=== PATIENT | female | born 1985 | race Caucasian/White ===

== ENCOUNTER 2017-02-22 15:50 | Observation (INO) | payer MEDICAID, SELFPAY ==
--- NOTE | 2017-02-22 15:58 | HP.PCM_ITS ---
Problem List (1) Heroin abuse Status: Chronic (2) Tobacco use Status: Chronic (3) Crack cocaine use Status: Chronic (4) Hepatitis C Status: Chronic Qualifiers: Viral hepatitis chronicity: unspecified History of Present Illness Date of Admission: 02/22/17 Chief Complaint: Acute Opiate Withdrawal The patient is a 31 y/o F w/ PMHx: Heroine IVDA (1/2-1 gm daily), Occasional Crack cocaine usage, Tobacco usage, History Hepatitis C positive status who presents to the [facility] office at [facility] on 02/22/17 w/ noted opiate withdrawal onset starting early this AM following last dose the day prior at approximately 8 pm and last noted crack cocaine usage 1 day prior also with abdominal pain/ cramping, generalized body aches and pains, rhinorrhea, piloerection, fatigue, restless leg, sweating, yawning. Patient interested in attaining clean status. She has never underwent acute withdrawal program. She notes usage started ~ 9 years prior following of her son with noted to have been on narcotics and the father of her son was an IVDA Heroin and she notes encouraged her usage. She lives with her mother who takes care of her son. She does not work she notes. She notes being an artists. 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 Past Medical History Past Medical History (Chronic Problems): Chronic Problems Crack cocaine use (Chronic) Hepatitis C (Chronic) Heroin abuse (Chronic) Tobacco use (Chronic) Cefazolin Hives Home Medications: Ambulatory Orders Medication Instructions Recorded No Known/Unobtainable [No Known 02/22/17 Home Medications] Surgical History: - - Tonsillectomy, ?1. 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 Smoking Status: Current every day smoker - 1 pack per day tobacco user. Tobacco Use: Cigarettes Alcohol: None Drugs: Cocaine, Heroin - *Family History Maternal History Items: No pertinent history Paternal History Items: Diabetes Review of Systems Constitutional: Reports: Anorexia, Chills, Malaise, Weakness, Fatigue. Denies: Fever, Weight Change HEENT: Denies: Head Aches, Sinus Congestion, Sinus Drainage Cardiovascular: Denies: Chest Pain, Palpitations Respiratory: Denies: Cough, Shortness of breath at rest, Sputum production Gastrointestinal: Reports: Abdominal Pain, Diarrhea, Nausea. Denies: Vomiting Genitourinary: Denies: Dysuria Musculoskeletal: Reports: Back Pain, Joint stiffness, Joint swelling, Joint Tenderness, Muscle pain, Shoulder Pain. Denies: Joint Pain Skin: Reports: Skin Changes, Wounds. Denies: Rash Neurological: Denies: Numbness, Tingling, Focal weakness Psychiatric: Denies: Anxiety, Depression, Homicidal Ideations, Suicidal Ideations Hematologic/ Lymphatic: Denies: Easy Bruising, Easy Bleeding VTE Information - Inpt Only VTE Present on Admission: No VTE Mechan Device Prophylaxis: SCD's VTE Pharm Prophylaxis ordered?: No Reason prophylaxis not ordered:: Treatment Not Indicated Subjective: Seated upright in the bed, mildly agitated, acute withdrawal evident. Objective: Physical Examination: General: awake, alert, oriented x 3 and cooperative, seated upright in bed, mildly agitated, acute withdrawal evident. Skin: normal color, turgor, no icterus, cyanosis aside occasional scar, primarily on her face and LE, most recent infection LUE antecubital region with no evidence of acute infection. HEENT: AT/NC, EOMI, PERRLA, mildly dry MM, no carotid bruits or JVD noted. Lungs: CTA bilaterally, moderate effort, moderate decrease BL bases, no rales, ronchi or wheezing. Heart: Regular rate and rhythm; no gallop, rub audible. Abdomen: soft, mildly generalized discomfort w/ palpation, ND, mildly hyperactive BS, + HM. Extremities: no cyanosis, clubbing, or edema, see skin. Neurological: patient awake, alert, oriented x 3; cognitive function intact; pupils equally reactive to light and accomodation; cranial nerves II-XII grossly normal, moving all 4 extremities, no focal deficits, strength moderately globally decreased secondary to acute presentation. Psychiatric: affect appears agitated, strained, no acute evidence of depressive feelings. Assessment/Plan The patient is a 31 y/o F w/ PMHx: Heroine IVDA (1/2-1 gm daily), Occasional Crack cocaine usage, Tobacco usage, History Hepatitis C positive status who presents to the [facility] office at [facility] on 02/22/17 w/ noted opiate withdrawal onset starting early this AM following last dose the day prior at approximately 8 pm and last noted crack cocaine usage 1 day prior also. (1) Acute Opiate Withdrawal: Will admit to [facility], obtain routine labs including CBC , CMP, urine for drug screen, urinalysis, serum lipase, routine EKG and will initiate and continue on [facility] service protocol with tapering course of Subutex, as needed Seroquel, Librium, Sinemet, Catapres, Bentyl, Vistaril, IV fluids, IV antiemetics, Tylenol as needed for pain. Once patient clinically improved and completion of taper nearing will plan [facility] assistance for transition to next level of rehabilitation care. (2) Polysubstance Abuse, IVDA Hx, History of Hepatitis C, Chronic: Patient currently not candidate for hep C treatment currently as needs to be clean, sober x 6 months, documented attendance NA or AA meetings, counseling and ongoing negative drug screens. Once appropriate GI, ID to initiate. HIV, hepatitis panel to assess for co-infection pending. Denied prostitution as method to obtain her drugs. Encouraged PCP establishment and follow-up. (3) Tobacco Abuse: Encouraged cessation, inpatient consultation per RT, NR if desired. (4) DVT prophylaxis: CHELITA, low risk, ambulation.
[2017-02-22 16:16] VITALS: BMI 24.6
[2017-02-22] MEDS: Dicyclomine 10 MG Capsule 20 MG PO (16:47)
[2017-02-22] MEDS: Buprenorphine HCl 2 MG TAB.SUBL SL (16:47)
[2017-02-22] MEDS: cloNIDine HCl 0.1 MG Tablet 0.2 MG PO (16:47)
[2017-02-22] MEDS: Methocarbamol 750 MG Tablet PO (16:48)
[2017-02-22] MEDS: Carbidopa/Levodopa 25/100 Tablet PO (16:48)
[2017-02-22 17:05] VITALS: BP 116/69; PULSE 45; RESP 16; TEMP 36.8
[2017-02-22] MEDS: 0.9% Normal Saline 1,000 ML 125 ML IV (17:25)
[2017-02-22 17:29] LABS: Absolute Lymphocyte Count 2.32 X10^3/ul (0.83-4.51); Absolute Neutrophil Count 5.8 X10^3/uL (2.0-7.7); Basophil# 0.06 X10^3/uL; Basophil% 0.7 % (0-1); Eosinophil# 0.09 X10^3/uL; Hematocrit 41.5 % (37-47); Hemoglobin 13.8 g/dl (12.0-15.0); Lymphocyte # 2.32 X10^3/ul (4.0); Lymphocyte % 26.5 % (19-41); Mean Corp Hgb Conc 33.3 g/gl (32-36); Mean Corpuscular Hgb 30.9 pg (27.0-32.0); Mean Platelet Vol. 10.4 fl (6.2-12.0); Monocyte# 0.44 X10^3/uL; Neutrophil # 5.84 X10^3/uL (2.7-7.7); Neutrophil % 66.6 % (47-70); Platelet Count 348 K/mm3 (150-450); RBC Distribution Width CV 13.1 % (11.6-14.6); RBC Distribution Width SD 44.9 fl (35.1-43.9); Red Blood Count 4.46 M/mm3 (4.2-5.4); White Blood Count 8.8 K/mm3 (4.4-11.0)
[2017-02-22 17:39] LABS: POSITIVE COUNT NO; POSITIVE DIFFERENTIAL NO; POSITIVE MORPHOLOGY NO
[2017-02-22 18:13] LABS: Alcohol, Blood (Medical)-Serum < 3.0 mg/dL
[2017-02-22 18:18] LABS: ALB/GLOB Ratio 0.9 RATIO (0.9-2.4); AST(SGOT) 50 U/L (15-37); Alanine Aminotransfer ALT/SGPT 96 U/L (12-78); Albumin, Serum 3.6 g/dL (3.4-5.0); Alkaline Phosphatase 91 U/L (45-117); Anion Gap 6 (5-15); BUN 8 mg/dL (7-18); BUN/Creat Ratio 10.3 RATIO (10-20); Calcium,Total 9.3 mg/dL (8.5-10.1); Chloride 104 mmol/L (98-107); Creatinine, Serum 0.78 mg/dL (0.55-1.02); EST Glomerular Filtration Rate 92 mL/min (>60); Est Glom Filt Rate - Afr Amer 112 mL/min (>60); Globulin 3.8 g/dL (2.3-3.5); Glucose 95 mg/dL (70-110); Lipase 95 U/L (73-393); Potassium 3.8 mmol/L (3.5-5.1); Protein, Total 7.4 g/dL (6.4-8.2); Sodium Level 138 mmol/L (136-145)
[2017-02-22] MEDS: chlordiazePOXIDE 25 MG Capsule PO ×2 (18:20→22:29)
[2017-02-22 18:23] LABS: Pregnancy, Serum, hCG Quali. NEGATIVE Negative (0-9 Nonpreg)
[2017-02-22 22:00] VITALS: BP 116/65; PULSE 76; RESP 16; TEMP 37
[2017-02-22] MEDS: traZODone 50 MG Tablet PO (22:29)
[2017-02-22] MEDS: QUEtiapine 25 MG Tablet PO (22:29)
[2017-02-23] VITALS (7 sets, daily range): BP systolic 108–120; BP diastolic 51–77; PULSE 44–62; RESP 12–18; TEMP 36.2–37; O2SAT 100
[2017-02-23] MEDS: Buprenorphine HCl 2 MG TAB.SUBL SL ×3 (00:23→16:12)
[2017-02-23] MEDS: chlordiazePOXIDE 25 MG Capsule PO ×4 (02:23→14:56)
[2017-02-23] MEDS: Methocarbamol 750 MG Tablet PO ×3 (06:23→22:17)
[2017-02-23] MEDS: Multivitamins,Ther W-Minerals Tablet 1 TABLET PO (07:39)
[2017-02-23] MEDS: Thiamine Hydrochloride 100 MG Tablet PO (07:39)
[2017-02-23] MEDS: Folic Acid 1 MG Tablet PO (07:39)
[2017-02-23] MEDS: Ibuprofen 400 MG Tablet 800 MG PO ×2 (07:42→18:13)
[2017-02-23] MEDS: Carbidopa/Levodopa 25/100 Tablet PO ×2 (07:43→18:17)
[2017-02-23] MEDS: Acetaminophen 325 MG Tablet 650 MG PO (10:40)
[2017-02-23] MEDS: QUEtiapine 25 MG Tablet PO ×2 (10:40→18:13)
[2017-02-23] MEDS: Loperamide 2 MG Capsule PO (10:40)
--- NOTE | 2017-02-23 11:55 | PCM.PROGNOTE ---
Subjective: 31-year-old female with history of IV heroin addiction and cocaine use presented to the [facility] office on 02/22 requesting inpatient admission for medical stabilization for opioid withdrawal. She has been to [facility] in the past for inpatient rehabilitation and was clean for 8 months. She started using heroin again when her ex-boyfriend back into her life. Plan is to go to [facility] discharged from [facility]. She is somewhat restless and is complaining of abdominal cramping and restless legs. Was able to sleep last night. She denies any nausea or vomiting. - Physical Exam General: Alert, Oriented x3, Cooperative, - - She is somewhat restless. No diaphoresis it makes good eye contact HEENT: Atraumatic Oral: Moist Mucosa Neck: Supple Lungs: Clear to auscultation Cardiovascular: Regular rate, Regular Rhythm, Normal S1, Normal S2, No murmurs, No Gallop Abdomen: Bowel Sounds Present, Soft, Non Tender, Non-Distended Extremities: No edema Vital Signs Temp Pulse Resp BP Pulse Ox 97.8 F 50 12 114/67 02/23/17 10:35 02/23/17 10:35 02/23/17 10:35 02/23/17 10:35 Weight: 143 lb 8.335 oz Body Mass Index (BMI) 24.6 Intake and Output for Last 24 Hours 02/21/17 02/22/17 02/23/17 23:59 23:59 23:59 Intake Total 990 Balance 990 Laboratory Tests Past 24 Hrs 02/22/17 02/22/17 02/22/17 17:08 17:08 17:08 WBC 8.8 RBC 4.46 Hgb 13.8 Hct 41.5 MCV 93.0 MCH 30.9 MCHC 33.3 RDW 13.1 RDW Differential 44.9 H Plt Count 348 MPV 10.4 Immature Gran % (Auto) 0.200 Neut % (Auto) 66.6 Lymph % (Auto) 26.5 Platte % (Auto) 5.0 Eos % (Auto) 1.0 Baso % (Auto) 0.7 Absolute Neuts (auto) 5.8 Absolute Lymphs (auto) 2.32 Total Counted Not Reportable Sodium 138 Potassium 3.8 Chloride 104 Carbon Dioxide 28.0 Anion Gap 6 BUN 8 Creatinine 0.78 Estim Creat Clear Calc 91.90 Est GFR (MDRD) Af Amer 112 Est GFR (MDRD) Non-Af 92 BUN/Creatinine Ratio 10.3 Glucose 95 Calcium 9.3 Total Bilirubin 0.20 AST 50 H ALT 96 H Alkaline Phosphatase 91 Total Protein 7.4 Albumin 3.6 Globulin 3.8 H Albumin/Globulin Ratio 0.9 Lipase 95 Serum , Qual Ethyl Alcohol Hepatitis A IgM Ab Pending Hepatitis A Ab Total Pending Hep Bs Antigen Pending Hep B Core Total Ab Pending Hep B Core IgM Ab Pending Hepatitis C Comment Pending HIV 1&2 Ag/Ab, 4th Gen Pending 02/22/17 02/22/17 17:08 17:08 WBC RBC Hgb Hct MCV MCH MCHC RDW RDW Differential Plt Count MPV Immature Gran % (Auto) Neut % (Auto) Lymph % (Auto) Platte % (Auto) Eos % (Auto) Baso % (Auto) Absolute Neuts (auto) Absolute Lymphs (auto) Total Counted Sodium Potassium Chloride Carbon Dioxide Anion Gap BUN Creatinine Estim Creat Clear Calc Est GFR (MDRD) Af Amer Est GFR (MDRD) Non-Af BUN/Creatinine Ratio Glucose Calcium Total Bilirubin AST ALT Alkaline Phosphatase Total Protein Albumin Globulin Albumin/Globulin Ratio Lipase Serum , Qual NEGATIVE Ethyl Alcohol < 3.0 Hepatitis A IgM Ab Hepatitis A Ab Total Hep Bs Antigen Hep B Core Total Ab Hep B Core IgM Ab Hepatitis C Comment HIV 1&2 Ag/Ab, 4th Gen Assessment/Plan Impressions 1. Acute opiate withdrawal and admitted for medical stabilization for withdrawal from opiates 2. Heroin addiction 3. Admitted use of cocaine 4. Hepatitis C with mildly increased transaminases 5. Nicotine addiction Continue [facility] protocol for opiate withdrawal
[2017-02-23] MEDS: traZODone 50 MG Tablet PO (22:17)
[2017-02-24] MEDS: Buprenorphine HCl 2 MG TAB.SUBL SL ×3 (00:03→20:27)
[2017-02-24 04:15] VITALS: BP 124/59; PULSE 58; RESP 16; TEMP 36.8; O2SAT 99
[2017-02-24 05:33] VITALS: BP 124/59; PULSE 58; RESP 16; TEMP 36.8
[2017-02-24 06:08] LABS: HEPATITIS B SURFACE AG Negative (Negative); Hepatitis A AB, Total Negative (Negative); Hepatitis A IgM Antibody Negative (Negative); Hepatitis B Core AB IgM Negative (Negative); Hepatitis B Core Ab Total Negative (Negative); Hepatitis C Ab >11.0 s/co ratio (0.0-0.9)
[2017-02-24 08:15] VITALS: BP 116/62; PULSE 55; RESP 16; TEMP 36.5
[2017-02-24] MEDS: Methocarbamol 750 MG Tablet PO ×2 (08:22→18:03)
[2017-02-24] MEDS: Multivitamins,Ther W-Minerals Tablet 1 TABLET PO (08:22)
[2017-02-24] MEDS: Folic Acid 1 MG Tablet PO (08:22)
[2017-02-24] MEDS: Thiamine Hydrochloride 100 MG Tablet PO (08:22)
[2017-02-24] MEDS: Carbidopa/Levodopa 25/100 Tablet PO ×2 (08:22→18:03)
[2017-02-24 09:08] LABS: HIV 1/0/2 SCREEN 4TH GEN Non Reactive (Non Reactive); Hep B Surface Antibodies Reactive (.)
[2017-02-24 15:10] VITALS: BP 115/77; PULSE 64; RESP 16; TEMP 36.8
[2017-02-24] MEDS: Ibuprofen 400 MG Tablet 800 MG PO (15:11)
[2017-02-24] MEDS: Loperamide 2 MG Capsule PO (15:11)
[2017-02-24] MEDS: cloNIDine HCl 0.1 MG Tablet PO (15:12)
--- NOTE | 2017-02-24 15:42 | PN_ITS ---
Subjective: Less restless today. Looks better. She is complaining of diarrhea today. Denies abdominal pain and also denies nausea or vomiting. She has had some diaphoresis. She is also complaining of some nasal congestion. Vital signs are stable. - Physical Exam General: Alert, Oriented x3, Cooperative, No apparent distress HEENT: Atraumatic, PERRLA, EOMI Oral: Moist Mucosa Lungs: Clear to auscultation Cardiovascular: Regular rate, Regular Rhythm, Normal S1, Normal S2, No murmurs Abdomen: Bowel Sounds Present - Increasing bowel sounds today, Soft, Non Tender , Non-Distended Extremities: No edema Skin: No rashes Vital Signs Temp Pulse Resp BP Pulse Ox 98.3 F 64 16 115/77 99 02/24/17 15:10 02/24/17 15:10 02/24/17 15:10 02/24/17 15:10 02/24/17 04:15 Oxygen Delivery Method Room Air Weight: 143 lb 8.335 oz Body Mass Index (BMI) 24.6 Intake and Output for Last 24 Hours 02/22/17 02/23/17 02/24/17 23:59 23:59 23:59 Intake Total 1690 1350 Balance 1690 1350 Laboratory Tests Past 24 Hrs 02/22/17 17:08 Hepatitis A IgM Ab Negative Hepatitis A Ab Total Negative Hep Bs Antigen Negative Hep B Core Total Ab Negative Hep B Core IgM Ab Negative Hepatitis C Ab Confirm >11.0 H Hepatitis C Comment Not Reportable HIV 1&2 Ag/Ab, 4th Gen Non Reactive Assessment/Plan Impressions 1. Acute opiate withdrawal and admitted for medical stabilization for withdrawal from opiates 2. Heroin addiction 3. Admitted use of cocaine 4. Hepatitis C with mildly increased transaminases 5. Nicotine addiction Continue [facility] protocol for opiate withdrawal
[2017-02-24 18:00] VITALS: BP 105/60; PULSE 59; RESP 14; TEMP 36.6
[2017-02-24] MEDS: QUEtiapine 25 MG Tablet PO (18:03)
[2017-02-24 20:19] VITALS: BP 111/58; PULSE 65; RESP 16; TEMP 36.9
[2017-02-24] MEDS: traZODone 50 MG Tablet PO (20:27)
[2017-02-25 00:32] VITALS: BP 104/65; PULSE 97; RESP 16; TEMP 36.6
[2017-02-25] MEDS: QUEtiapine 25 MG Tablet PO (00:33)
[2017-02-25] MEDS: Methocarbamol 750 MG Tablet PO (00:33)
[2017-02-25] MEDS: Ibuprofen 400 MG Tablet 800 MG PO (00:33)
[2017-02-25 08:06] VITALS: BP 108/54; PULSE 54; RESP 16; TEMP 36.8
[2017-02-25] MEDS: Buprenorphine HCl 2 MG TAB.SUBL SL (08:12)
[2017-02-25] MEDS: Folic Acid 1 MG Tablet PO (08:12)
[2017-02-25] MEDS: Thiamine Hydrochloride 100 MG Tablet PO (08:12)
[2017-02-25] MEDS: Multivitamins,Ther W-Minerals Tablet 1 TABLET PO (08:12)
--- NOTE | 2017-02-25 12:01 | PCM.DC ---
- Discharge Diagnoses Current Active Problems: Current Active and Chronic Problems Crack cocaine use (Chronic) Hepatitis C (Chronic) Heroin abuse (Chronic) Tobacco use (Chronic) You will use the following diet at home:: No restrictions Your food should be the consistency of: Regular Your liquids should be the consistency of: Regular/Thin Discharge Activity: Return to Normal Activity Call your doctor if you observe: Fever of 101 or Higher Allergies/Adverse Reactions: Allergies cefazolin Allergy (Verified 02/22/17 16:17) Hives Medications to take at Discharge Ibuprofen [Motrin] 800 mg PO Q8H PRN PRN tablet 02/25/17 Loperamide [Imodium] 2 - 4 mg PO UD PRN capsule 02/25/17 Multivitamins,Ther W-Minerals [Multivitamin With Minerals] 1 tablet PO DAILYCM tablet 02/25/17 Primary Care Physician: Alka Huynh,Out of [Primary Care Provider] - Proposed Discharge Date: 02/25/17
--- NOTE | 2017-02-27 21:29 | PCM.DC.SUM ---
Discharge Date and Diagnosis Date of Admission: 02/22/17 Date of Discharge: 02/25/17 - Primary Discharge Diagnosis Acute opiate withdrawal - Secondary Discharge Diagnosis Chronic Problems Crack cocaine use (Chronic) Hepatitis C (Chronic) Heroin abuse (Chronic) Tobacco use (Chronic) Hospital Course and Treatment Imaging Results: Laboratory Last Values WBC 8.8 K/mm3 (4.4-11.0) 02/22/17 17:08 RBC 4.46 M/mm3 (4.2-5.4) 02/22/17 17:08 Hgb 13.8 g/dl (12.0-15.0) 02/22/17 17:08 Hct 41.5 % (37-47) 02/22/17 17:08 MCV 93.0 fL (81-99) 02/22/17 17:08 MCH 30.9 pg (27.0-32.0) 02/22/17 17:08 MCHC 33.3 g/gl (32-36) 02/22/17 17:08 RDW 13.1 % (11.6-14.6) 02/22/17 17:08 RDW Differential 44.9 fl (35.1-43.9) H 02/22/17 17:08 Plt Count 348 K/mm3 (150-450) 02/22/17 17:08 MPV 10.4 fl (6.2-12.0) 02/22/17 17:08 Immature Gran % (Auto) 0.200 % (0.0-0.9) 02/22/17 17:08 Neut % (Auto) 66.6 % (47-70) 02/22/17 17:08 Lymph % (Auto) 26.5 % (19-41) 02/22/17 17:08 Rankin % (Auto) 5.0 % (0-10) 02/22/17 17:08 Eos % (Auto) 1.0 % (0-5) 02/22/17 17:08 Baso % (Auto) 0.7 % (0-1) 02/22/17 17:08 Absolute Neuts (auto) 5.8 X10^3/uL (2.0-7.7) 02/22/17 17:08 Absolute Lymphs (auto) 2.32 X10^3/ul (0.83-4.51) 02/22/17 17:08 Total Counted Not Reportable 02/22/17 17:08 Sodium 138 mmol/L (136-145) 02/22/17 17:08 Potassium 3.8 mmol/L (3.5-5.1) 02/22/17 17:08 Chloride 104 mmol/L (98-107) 02/22/17 17:08 Carbon Dioxide 28.0 mmol/L (21.0-32.0) 02/22/17 17:08 Anion Gap 6 (5-15) 02/22/17 17:08 BUN 8 mg/dL (7-18) 02/22/17 17:08 Creatinine 0.78 mg/dL (0.55-1.02) 02/22/17 17:08 Estim Creat Clear Calc 91.90 ml/min 02/22/17 17:08 Est GFR (MDRD) Af Amer 112 mL/min (>60) 02/22/17 17:08 Est GFR (MDRD) Non-Af 92 mL/min (>60) 02/22/17 17:08 BUN/Creatinine Ratio 10.3 RATIO (10-20) 02/22/17 17:08 Glucose 95 mg/dL (70-110) 02/22/17 17:08 Calcium 9.3 mg/dL (8.5-10.1) 02/22/17 17:08 Total Bilirubin 0.20 mg/dL (0.20-1.00) 02/22/17 17:08 AST 50 U/L (15-37) H 02/22/17 17:08 ALT 96 U/L (12-78) H 02/22/17 17:08 Alkaline Phosphatase 91 U/L (45-117) 02/22/17 17:08 Total Protein 7.4 g/dL (6.4-8.2) 02/22/17 17:08 Albumin 3.6 g/dL (3.4-5.0) 02/22/17 17:08 Globulin 3.8 g/dL (2.3-3.5) H 02/22/17 17:08 Albumin/Globulin Ratio 0.9 RATIO (0.9-2.4) 02/22/17 17:08 Lipase 95 U/L (73-393) 02/22/17 17:08 Serum , Qual NEGATIVE Negative (0-9 Nonpreg) 02/22/17 17:08 Ethyl Alcohol < 3.0 mg/dL 02/22/17 17:08 Hepatitis A IgM Ab Negative (Negative) 02/22/17 17:08 Hepatitis A Ab Total Negative (Negative) 02/22/17 17:08 Hep Bs Antigen Negative (Negative) 02/22/17 17:08 Hep B Core Total Ab Negative (Negative) 02/22/17 17:08 Hep B Core IgM Ab Negative (Negative) 02/22/17 17:08 Hepatitis C Ab Confirm >11.0 s/co ratio (0.0-0.9) H 02/22/17 17:08 Hepatitis C Comment Not Reportable 02/22/17 17:08 HIV 1&2 Ag/Ab, 4th Gen Non Reactive (Non Reactive) 02/22/17 17:08 None Operations: None Procedures: None Summary of Care Provided: 31-year-old female with history of IV heroin addiction and cocaine use presented to the [facility] office on 02/22 requesting inpatient admission for medical stabilization for opioid withdrawal. She had been to in-patient drug rehab in the past at [facility] and her plan was to return to [facility] upon discharge from [facility]. She was admitted to the hospital and the [facility] protocol for opioid withdrawal was initiated. Labs showed a normal CBC. The CMP showed a mild increase in AST to 50 and the ALT was 96. Bilirubin and alkaline phosphatase were within normal limits and she is known to have hepatitis C. Serum test was negative. HIV was negative. Her admission was unremarkable and on the date of discharge she was alert and oriented ?3. Her mother arrived at the hospital and was going to drive her to [facility] for intake. Discharge Activity: Return to Normal Activity Call your doctor if you observe: Fever of 101 or Higher Home Medications: Medications to take at Discharge Ibuprofen [Motrin] 800 mg PO Q8H PRN PRN tablet 02/25/17 Loperamide [Imodium] 2 - 4 mg PO UD PRN capsule 02/25/17 Multivitamins,Ther W-Minerals [Multivitamin With Minerals] 1 tablet PO DAILYCM tablet 02/25/17 Primary Care Physician: Alka Huynh,Out of [Primary Care Provider] - Disposition: [facility] for inpt drug rehab Minutes spent on discharge:: 30 Patient Condition:: Good Meaningful Use Info Meaningful Use Diagnoses (Choose all that apply): None applicable
== END 2017-02-25 12:10 | disposition home or self-care (01) | DRG 773 ==
LOC: MS2 08-08 08:24
PROVIDERS: Admitting Provider Family Medicine; Visit Provider Internal Medicine
DX: F11.23 Opioid dependence with withdrawal (principal); F17.210 Nicotine dependence, cigarettes, uncomplicated; B18.2 Chronic viral hepatitis C; F14.90 Cocaine use, unspecified, uncomplicated
CPT/HCPCS: 80053; 80307; 80320; 83690; 84703; 85025; 86703; 86704; 86705; 86706; 86708; 86709; 86803; 87340; 93005; 97803; 99218; J7030; A4216; G0378; G0379; G0480